=== PATIENT | female | born 1995 | race African-American/Black ===

== ENCOUNTER 2016-12-20 11:38 | Inpatient (IN) ==
[2016-12-20] MEDS ORDERED: ONDANSETRON 4 MG/2 ML VIAL IV PRN (12:41)
[2016-12-20 13:08] LABS: Basophils % 0.2 % (0.0-0.8); Eosinophils # 0.2 10*3/uL (0.0-0.87); Eosinophils % 1.5 % (0.00-10.9); Hematocrit 32.9 VOL% (35.7-47.0); Hemoglobin 10.8 GM/DL (12.0-16.0); Immature Granulocytes % 0.7 %; Immature Granulocytes Absolute 0.08 #; Lymphocytes # 1.9 10*3/uL (1.4-4.0); Lymphocytes % 17.3 % (21.3-54.2); Mean Corpuscular HGB Conc 32.8 GM/DL (32-36); Mean Corpuscular Hemoglobin 27 PG (27-34); Mean Corpuscular Volume 83.3 FL (87-102); Mean Platelet Volume 10.7 FL (9.6-12.0); Monocytes # 0.7 10*3/uL (0.11-0.8); Monocytes % 6.8 % (1.7-12.7); Neutrophils # 7.9 10*3/uL (1.4-7.4); Neutrophils % 73.5 % (38.7-73.9); Platelet Count 256 T/CUMM (130-400); Red Blood Count 3.95 MC/CUMM (3.8-5.5); Red Cell Distribution Width 12.6 % (9.3-17.3); White Blood Count 10.7 T/CUMM (4-12)
[2016-12-20] MEDS: LACTATED RINGERS 1,000 ML IV SCH ×2 (13:14→21:35)
[2016-12-20] MEDS: AMPICILLIN INJ 2,000 MG in SODIUM CHLORIDE 0.9% 100 ML IV SCH ×2 (13:15→19:45)
[2016-12-20 13:47] LABS: Alanine Aminotransferase 18 U/L (13-56); Albumin 3.1 G/DL (3.4-5.0); Alkaline Phosphatase 62 U/L (45-117); Aspartate Amino Transferase 10 U/L (0-37); Bilirubin,Total < 0.39 MG/DL (0.2-1.0); Blood Urea Nitrogen 8 MG/DL (7-18); Calcium 8.7 MG/DL (8.5-10.1); Glucose 83 MG/DL (74-106); Osmolality,Calculated 277.3 MOS/KG (273-304); Potassium 4.3 MMOL/L (3.5-5.1); Sodium 141 MMOL/L (136-145); Total Protein 6.5 G/DL (6.4-8.3)
[2016-12-20 13:58] LABS: Apearance,Urine CLEAR (Clear); Bilirubin,Urine Negative (Negative); Blood, Urine Negative (Negative); Glucose,Urine (UA) Negative (Negative); Ketones,Urine 5 mg/dL (Negative); Nitrite,Urine Negative (Negative); Protein,Urine Negative; RBC,Urine <1 /HPF (0-4); Urine Color Straw (Yellow); Urine Specific Gravity 1.006 (1.001-1.035); Urine Urobilinogen < 2.0 EU/DL (0.2-1.0); WBC,Urine <1 /HPF (0-6)
[2016-12-20] MEDS ORDERED: CITRIC ACID/SODIUM CITRATE 30 ML UDCUP PO ONE (14:37)
[2016-12-20] MEDS ORDERED: FAMOTIDINE 20 MG/2 ML VIAL IV ONE (14:37)
[2016-12-20] MEDS ORDERED: CITRIC ACID/SODIUM CITRATE 30 ML UDCUP ONE (14:38)
--- NOTE | 2016-12-20 14:53 | History and Physical Update ---
History and Physical Update - Dictation Physical: refer to scanned H&P - Physical Exam Mental Status: alert and oriented Heart: regular rate and rhythm Lung: clear to auscultation Abdomen: within normal limits Vitals: within normal limits History and Physical Changes: [id number] at 19 weeks gestation found to have incompetent cervix with hourglassing membranes on routine 2nd TM US today at Dr. Kim. Pt has had no symptoms of PTL including no UCs or cramping. Denies recent illness or fever. Adequate AFV. Good movement. Rh Positive. Abx started. Cultures collected. I have discussed with pt, her SO and her mother in great detail risk of placing emergency cervical cerclage including possibly not being able to place cerclage , possible ROM, possible infection such that cerclage would need to be removed, possible PTD prior to viability despite cerclage placement, among other scenarios. Pt and family are aware and seem to understand that viability is considered 24 wks gestation. Questions answered. Pt wishes to proceed with attempt at emergency cerclage placement.
[2016-12-20] MEDS ORDERED: LACTATED RINGERS 1,000 ML IV SCH (15:00)
[2016-12-20 17:21] LABS: Barbiturates Screen,Urine Negative (Negative); Benzodiazepines Screen,Urine Negative (Negative); Cannabinoid Screen,Urine Negative (Negative); Opiate Screen,Urine Negative (Negative); Phencyclidine Screen,Urine Negative (Negative)
[2016-12-20] MEDS ORDERED: MEPERIDINE 25 MG/1 ML VIAL ONE (17:46)
[2016-12-20] MEDS: MEPERIDINE 25 MG/1 ML VIAL IV PRN ×2 (18:14→22:52)
[2016-12-20] MEDS: ERYTHROMYCIN INJ 500 MG in SODIUM CHLORIDE 0.9% 100 ML IV SCH ×2 (19:29→21:30)
[2016-12-21] MEDS: AMPICILLIN INJ 2,000 MG in SODIUM CHLORIDE 0.9% 100 ML IV SCH ×4 (01:28→22:38)
[2016-12-21] MEDS: ERYTHROMYCIN INJ 500 MG in SODIUM CHLORIDE 0.9% 100 ML IV SCH ×4 (03:12→23:45)
[2016-12-21 07:07] LABS: Basophils % 0.1 % (0.0-0.8); Hematocrit 32.4 VOL% (35.7-47.0); Hemoglobin 10.2 GM/DL (12.0-16.0); Immature Granulocytes % 1.1 %; Immature Granulocytes Absolute 0.18 #; Lymphocytes # 1.2 10*3/uL (1.4-4.0); Mean Corpuscular HGB Conc 31.5 GM/DL (32-36); Mean Corpuscular Hemoglobin 27 PG (27-34); Mean Corpuscular Volume 86.6 FL (87-102); Mean Platelet Volume 10.6 FL (9.6-12.0); Monocytes # 0.6 10*3/uL (0.11-0.8); Monocytes % 3.8 % (1.7-12.7); Neutrophils # 14.9 10*3/uL (1.4-7.4); Platelet Count 260 T/CUMM (130-400); Red Blood Count 3.74 MC/CUMM (3.8-5.5); Red Cell Distribution Width 12.7 % (9.3-17.3); White Blood Count 16.9 T/CUMM (4-12)
--- NOTE | 2016-12-21 07:37 | Ultrasound Report ---
US OB limited Indication: . Cerclage. Check SHERRY. Limited obstetric ultrasound: Cervix is 15 mm long with one image suggesting funneling of the internal cervical os. SHERRY 84 mm. heart rate 163 BPM. Fetus is in a vertex position. Anterior placenta without previa. Impression: Thinning of the cervix as described. Possible funneling of the internal cervical os. Normal SHERRY. PROCEDURE INTERPRETED AT [facility] DEPARTMENT OF RADIOLOGY Final Report Signed by: Aditya Benson M.D.
[2016-12-21] MEDS ORDERED: PROMETHAZINE 25 MG/1 ML VIAL IM ONE (10:22)
--- NOTE | 2016-12-21 15:13 | Anesthesia ---
Anesthesia Post OP - Post Ansesthetic Evaluation Patient seen in post op: Yes Resp: within normal limits CV: within normal limits Mental: within normal limits Temp: within normal limits [id number]: within normal limits Nausea and Vomiting: within normal limits Pain: within normal limits
[2016-12-21] MEDS: LACTATED RINGERS 1,000 ML IV SCH (16:21)
[2016-12-22] MEDS: AMPICILLIN INJ 2,000 MG in SODIUM CHLORIDE 0.9% 100 ML IV SCH (05:21)
[2016-12-22] MEDS: LACTATED RINGERS 1,000 ML IV SCH (05:23)
[2016-12-22 05:28] LABS: Basophils % 0.1 % (0.0-0.8); Hematocrit 27.2 VOL% (35.7-47.0); Hemoglobin 8.9 GM/DL (12.0-16.0); Immature Granulocytes % 0.7 %; Lymphocytes # 1.5 10*3/uL (1.4-4.0); Lymphocytes % 10.3 % (21.3-54.2); Mean Corpuscular HGB Conc 32.7 GM/DL (32-36); Mean Corpuscular Hemoglobin 27 PG (27-34); Mean Corpuscular Volume 83.2 FL (87-102); Mean Platelet Volume 10.9 FL (9.6-12.0); Monocytes # 0.9 10*3/uL (0.11-0.8); Monocytes % 6.1 % (1.7-12.7); Neutrophils % 82.8 % (38.7-73.9); Platelet Count 238 T/CUMM (130-400); Red Blood Count 3.27 MC/CUMM (3.8-5.5); Red Cell Distribution Width 12.9 % (9.3-17.3); White Blood Count 14.5 T/CUMM (4-12)
[2016-12-22] MEDS: ERYTHROMYCIN INJ 500 MG in SODIUM CHLORIDE 0.9% 100 ML IV SCH ×2 (06:25)
--- NOTE | 2016-12-22 07:54 | Ultrasound Report ---
US OB limited Indication: Check amniotic fluid index and cervical length. History of cervical cerclage. Comparison: Limited OB ultrasound 12/21/2016. Technique: Using transabdominal probe, multiple grayscale, color Doppler, and M-mode Doppler images of the fetus were captured and stored. Findings: Fetus lies in vertex position. Cervix measures 1.9 cm. Endocervical canal appear shortened, but stable compared to previous study. Anterior placenta is present. Amniotic fluid appears adequate with amniotic fluid index of 8.81 cm. heart rate of 151 bpm is demonstrated. Impression: 1. Shortening of the endocervical canal is demonstrated stable in appearance to prior study. 2. Amniotic fluid index is within normal limits. 12/22/2016 7:49 AM PROCEDURE INTERPRETED AT [facility] DEPARTMENT OF RADIOLOGY Final Report Signed by: Dr. Gene Curry
--- NOTE | 2016-12-23 03:56 | OB/GYN Progress Note ---
Assessment and Plan (1) Cervical cerclage suture present in second trimester Status: Acute Current Visit: Yes FINANCE ASSISTANT - PN: Subj Interval history: 12/21/15 at 0830 Progress Note: Pt POD #1 from emergency cerclage placement at 19 wks feeling fine this morning on rounds. She had significant cramping after spinal effect was gone last evening which was very concerning, but this morning pt denies cramping. Her abdomen is nontender. I suspect now the cramping was due to 2 large stools the patient had last evening not long after surgery. She had had some significant nausea and emesis that has subsided for now. Plan to D/C her Molina later today if remains stable. WBC this morning 16,000 which is also concerning but pt is non-toxic in appearance and again abdomen is nontender. Plan to continue IV abx for 48 hours then D/C if no specific infection identified. Will continue close observation. Pt and her family are aware that if clinical signs of infection will need to remove cerclage and that the baby would not be expected to survive if delivered before 24 wks. Exam FINANCE ASSISTANT - Constitutional Vitals: Vital Signs Temp Pulse Resp BP Pulse Ox 12/23/16 02:00 18 12/22/16 23:30 97.7 F 91 H 18 92/51 97 12/22/16 22:00 18 12/22/16 20:42 92 H 20 12/22/16 20:00 97.8 F 92 H 20 101/62 97 12/22/16 15:44 98.4 F 106 H 20 112/58 98 12/22/16 11:39 98.1 F 106 H 18 105/58 98 12/22/16 07:22 98.4 F 108 H 18 116/71 99 12/22/16 04:00 98.8 F 101 H 20 108/50 99 General appearance: normal weight, no acute distress, other (good spirits this morning) - Head Head exam: Present: normal inspection, normocephalic - Eye Eye exam: Present: EOMI - Respiratory Respiratory exam: Present: clear to auscultation bilaterally - Cardiovascular Cardiovascular exam: Present: tachycardia - GI/Abdominal GI/Abdominal exam: Present: soft, other (nontender) - Extremities Exam Extremities exam: Present: normal inspection - Neurological Exam Neurological exam: Present: alert, oriented X3 - Psychiatric Psychiatric exam: Present: normal affect, normal mood - Skin Skin exam: Present: normal color, warm Results - Labs CBC & BMP: 12/22/16 04:46 12/20/16 13:01
--- NOTE | 2016-12-23 04:00 | OB/GYN Progress Note ---
Assessment and Plan (1) Cervical cerclage suture present in second trimester Status: Acute Assessment and plan: Continue care as discussed in notes. 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 No temps of 100.5 or greater. I'm suspicious the N/V and temps could be related to her antibiotic dosing. Plan D/C of IV abx later today. Plan D/C of Molina later today. Pt feeling well overall and again no TTP of abdomen. SHERRY essentially unchanged. Good heart tones. Exam SPRAYER AUTOMATIC SPRAY MACHINE - Constitutional Vitals: Vital Signs Temp Pulse Resp BP Pulse Ox 12/23/16 02:00 18 12/22/16 23:30 97.7 F 91 H 18 92/51 97 12/22/16 22:00 18 12/22/16 20:42 92 H 20 12/22/16 20:00 97.8 F 92 H 20 101/62 97 12/22/16 15:44 98.4 F 106 H 20 112/58 98 12/22/16 11:39 98.1 F 106 H 18 105/58 98 12/22/16 07:22 98.4 F 108 H 18 116/71 99 12/22/16 04:00 98.8 F 101 H 20 108/50 99 General appearance: normal weight, no acute distress - Head Head exam: Present: normal inspection, normocephalic - Eye Eye exam: Present: EOMI - Respiratory Respiratory exam: Present: clear to auscultation bilaterally - Cardiovascular Cardiovascular exam: Present: regular rate and rhythm - GI/Abdominal GI/Abdominal exam: Present: soft, other (nontender) - Extremities Exam Extremities exam: Present: normal inspection - Neurological Exam Neurological exam: Present: alert, oriented X3 - Psychiatric Psychiatric exam: Present: normal affect, normal mood - Skin Skin exam: Present: normal color, warm Results - Labs CBC & BMP: 12/22/16 04:46 12/20/16 13:01 Lab Results: I have reviewed the past 24 hour labs
--- NOTE | 2016-12-23 04:12 | OB/GYN Progress Note ---
Assessment and Plan (1) Cervical cerclage suture present in second trimester Status: Acute Assessment and plan: Continue care as discussed in notes. Current Visit: Yes WINDOW AND SIDING CRAFTSMAN - PN: Subj Interval history: 12/23/16 0400 Progress Note Pt doing well. No further fever since IV abx stopped yesterday. No further nausea or emesis since IV abx stopped. Vaginal culture noted with 2 varieties of E. coli cultured out. Will start Ampicillin orally for 7 days. Also will start vaginal progesterone for possible cervical support at this point. Will D/C home later today if remains stable with strict instructions on pelvic rest, close monitoring for signs of infection, light activity only. Will recheck in office on Monday. Exam WINDOW AND SIDING CRAFTSMAN - Constitutional Vitals: Vital Signs Temp Pulse Resp BP Pulse Ox 12/23/16 02:00 18 12/22/16 23:30 97.7 F 91 H 18 92/51 97 12/22/16 22:00 18 12/22/16 20:42 92 H 20 12/22/16 20:00 97.8 F 92 H 20 101/62 97 12/22/16 15:44 98.4 F 106 H 20 112/58 98 12/22/16 11:39 98.1 F 106 H 18 105/58 98 12/22/16 07:22 98.4 F 108 H 18 116/71 99 General appearance: normal weight, no acute distress - Head Head exam: Present: normal inspection, normocephalic - Eye Eye exam: Present: EOMI - Respiratory Respiratory exam: Present: clear to auscultation bilaterally - Cardiovascular Cardiovascular exam: Present: regular rate and rhythm - GI/Abdominal GI/Abdominal exam: Present: soft, other (nontender) - Extremities Exam Extremities exam: Present: normal inspection - Neurological Exam Neurological exam: Present: alert, oriented X3 - Psychiatric Psychiatric exam: Present: normal affect, normal mood - Skin Skin exam: Present: normal color, warm Results - Labs CBC & BMP: 12/22/16 04:46 12/20/16 13:01
--- NOTE | 2016-12-23 04:18 | Discharge Summary ---
Hospital Course - Hospital Course Hospital Course: Admitted directly from Dr. Braden's office where pt was found to have incompetent cervix with membranes through the cervical os on routine 20 week US screening. Discussed various mgt options with patient and her family and pt wished to have emergency cerclage. She was made aware of various BRCA. She underwent the procedure without complication. She had low grad temps afterward but non at 100.5 or higher. She had intermittent N/V. The temps and N/V resolved once her IV Ampicillin and Erythromycin were stopped. Her vaginal culture grew 2 varieties of E.coli that were both sensitive to Ampicillin. Her Molina was D/C'd on postop day2 and pt was voiding without difficulty. Pt to be dismissed as she remains stable. Diagnosis - Discharge Diagnosis (1) Cervical cerclage suture present in second trimester Status: Acute Discharge Plan - Discharge Data Disposition: Disch To Home/Self Care Condition at Discharge: Stable Discharge Diet: regular diet Activity: other (pelvic rest, light activity only) Hygiene: may shower Weight Bearing at Discharge: full weight bearing Driving: not until seen by doctor Contact your physician if you experience:: fever over 101, Difficulty voiding, Redness or swelling, Nausea/Vomiting, Shortness of breath, Bleeding, pain uncontrolled by pain medications - Discharge Medications New Ampicillin Cap 500 mg PO QID #28 capsule proGESTerone [Prometrium] 200 mg VAG BEDTIME #30 capsule - Follow Up or Referral Follow Up: Andie Soler DO [Primary Care Provider] - (Monday12/26/16 at 2 pm at office ) - Forms/Instructions Exam - Constitutional Vitals: Period Temp Pulse Resp BP Sys/Diaz Pulse Ox Last 24 Hr 97.7 F-98.4 F 91-108 18-20 92-116/51-71 97-99 General appearance: normal weight, no acute distress - Head Head exam: Present: normal inspection, normocephalic - Eye Eye exam: Present: EOMI - Respiratory Respiratory exam: Present: clear to auscultation bilaterally - Cardiovascular Cardiovascular exam: Present: regular rate and rhythm - GI/Abdominal GI/Abdominal exam: Present: soft, other (nontender) - Extremities Exam Extremities exam: Present: normal inspection - Neurological Exam Neurological exam: Present: alert, oriented X3 - Psychiatric Psychiatric exam: Present: normal affect, normal mood - Skin Skin exam: Present: normal color, warm Discharge Results Labs on day of discharge: Labs from last 24 hours 12/22/16 04:46 WBC 14.5 H RBC 3.27 L Hgb 8.9 L Hct 27.2 L MCV 83.2 L MCH 27 MCHC 32.7 RDW 12.9 Plt Count 238 MPV 10.9 Neut % (Auto) 82.8 H Lymph % (Auto) 10.3 L [place] % (Auto) 6.1 Eos % (Auto) 0.0 Baso % (Auto) 0.1 Neut # (Auto) 12.0 H Lymph # (Auto) 1.5 [place] # (Auto) 0.9 H Eos # (Auto) 0.0 Baso # (Auto) 0.0 Immature Gran % 0.7 Nucleated RBC % 0.0 Immature Gran # 0.10 Nucleated RBCs # 0.00 DS: Provider Date of admission: 12/20/16 12:41 Primary care physician: Andie Soler DO Attending physician on admission: Andie Soler DO Consults: 12/20/16 12:41 Consult to Anesthesiology [CONS] Routine Consulting Provider: Reason for Anesthesiology: Epidural Consult Comment: Epidural for pain managment Discharging clinician: Andie Soler DO Expected date of discharge: 12/23/16
[2016-12-23 07:25] VITALS: BP 103/48
[2016-12-23] MEDS ORDERED: AMPICILLIN 500 MG CAPSULE PO SCH (09:00)
== END 2016-12-23 11:05 | disposition home or self-care (01) | DRG 782 ==
LOC: N.LDOUT 11:38 → N.LD 11:40 → N.OB 12-21 10:51
PROVIDERS: ADMIT Obstetrics & Gynecology; ATTEND Obstetrics & Gynecology

== ENCOUNTER 2016-12-30 04:11 | Inpatient (IN) ==
[2016-12-30] MEDS ORDERED: ONDANSETRON 4 MG/2 ML VIAL IV PRN (04:37)
[2016-12-30] MEDS ORDERED: MEPERIDINE 50 MG/1 ML VIAL IV PRN (04:37)
[2016-12-30] MEDS ORDERED: LACTATED RINGERS 1,000 ML IV SCH (05:00)
[2016-12-30] MEDS ORDERED: OXYTOCIN/LR 20 UNIT/1,000 ML BAG IV ONE ×2 (05:03→05:37)
[2016-12-30 05:04] LABS: Basophils % 0.2 % (0.0-0.8); Hematocrit 32.4 VOL% (35.7-47.0); Hemoglobin 10.5 GM/DL (12.0-16.0); Immature Granulocytes % 1.1 %; Immature Granulocytes Absolute 0.25 #; Lymphocytes # 0.8 10*3/uL (1.4-4.0); Lymphocytes % 3.5 % (21.3-54.2); Mean Corpuscular HGB Conc 32.4 GM/DL (32-36); Mean Corpuscular Hemoglobin 27 PG (27-34); Mean Corpuscular Volume 84.4 FL (87-102); Mean Platelet Volume 10.6 FL (9.6-12.0); Monocytes # 0.7 10*3/uL (0.11-0.8); Monocytes % 3.2 % (1.7-12.7); Neutrophils # 20.9 10*3/uL (1.4-7.4); Platelet Count 218 T/CUMM (130-400); Red Blood Count 3.84 MC/CUMM (3.8-5.5); White Blood Count 22.7 T/CUMM (4-12)
[2016-12-30 05:28] LABS: Band Neutrophils 8 % (0-10); Lymphocytes 6 % (20-55); Metamyelocytes 3 %; Myelocytes 2 %; Segmented Neutrophils 79 % (50-85)
[2016-12-30 05:29] LABS: Burr Cells 1+; Platelet Estimate Normal
[2016-12-30 05:30] LABS: Total Cells Counted 100
[2016-12-30] MEDS ORDERED: IBUPROFEN 800 MG TABLET PO PRN (05:37)
[2016-12-30] MEDS ORDERED: ACETAMINOPHEN 325 MG TABLET PO PRN (05:37)
[2016-12-30] MEDS ORDERED: WITCH HAZEL PADS 100/JAR TOP PRN (05:37)
[2016-12-30] MEDS ORDERED: RHO(D) IMMUNE GLOBULIN 300 MCG SYRINGE IM ONE (05:37)
[2016-12-30] MEDS ORDERED: BENZOCAINE 20%/MENTHOL 0.5% SPRAY 56 GM CAN TOP PRN (05:37)
[2016-12-30] MEDS ORDERED: LANOLIN 50% CREAM 0.3 OZ TUBE TOP PRN (05:37)
[2016-12-30] MEDS ORDERED: MEASLES/MUMPS/RUBELLA VACCINE 0.5 ML VIAL SUBCUT ONE (05:37)
[2016-12-30] MEDS ORDERED: HYDROCORTISONE 2.5% RECTAL CREAM 30 GM TUBE TOP PRN (05:37)
[2016-12-30] MEDS ORDERED: BISACODYL 10 MG SUPP RECTAL PRN (05:37)
[2016-12-30] MEDS ORDERED: DIPH/TET/ACEL PERT BOOSTER VACCINE 0.5 ML VIAL IM ONE (05:37)
[2016-12-30] MEDS ORDERED: oxyCODONE/ACETAMINOPHEN 5-325 MG TABLET PO PRN ×2 (05:37)
--- NOTE | 2016-12-30 05:58 | Operative Note ---
Date of procedure: 12/30/16 Pre-op diagnosis: at 20 weeks with demise Post-op diagnosis: same (cervical incompetence with cerclage, severe oligohydramnios, tight nuchal cord) Procedure: Spontaneous vaginal delivery Patient presented to the hospital with active contractions and advancing progress of the demise through the canal. Fetus was allowed to deliver to its head and delivered with maternal expulsive effort. The fetus placenta and intact bag of samay[place] were all delivered together with no evidence of life or amniotic fluid. The maternal surface of the placenta appeared ragged and odor and is being cultured. Patient is recovering well. Anesthesia: none Surgeon / Physician: Alexey Talbot Estimated blood loss: minimal Specimens: other (fetus membranes and placenta) Condition: stable Disposition: floor Results - Labs CBC & BMP: 12/30/16 04:59 Discharge Plan - Discharge Medications No Action RX: proGESTerone [Prometrium] 200 mg VAG BEDTIME #30 capsule - Follow Up or Referral - Forms/Instructions
[2016-12-30] MEDS: CIPROFLOXACIN 500 MG TABLET PO SCH ×2 (10:40→20:25)
[2016-12-30] MEDS: metroNIDAZOLE 500 MG TABLET PO SCH ×2 (10:40→20:25)
--- NOTE | 2016-12-30 19:43 | OB/GYN Progress Note ---
Assessment and Plan (1) demise before 22 weeks with retention of fetus Problem details: Cerclage stitches have been left in place for removal later in the office. Antibiotics will be continued until tomorrow and possible discharge done tomorrow Status: Acute Current Visit: Yes MANAGER CARGO - PN: Subj Interval history: Patient has recovered well with minimal abdominal discomfort and no significant bleeding. No vaginal odor or abdominal tenderness Exam MANAGER CARGO - Constitutional Vitals: Vital Signs Temp Pulse Resp BP Pulse Ox 12/30/16 15:33 97.9 F 105 H 18 90/67 98 12/30/16 11:35 98 F 111 H 18 82/54 99 12/30/16 08:14 97.1 F L 114 H 20 85/49 96 12/30/16 08:00 97.2 F L 117 H 20 82/44 96 12/30/16 04:35 97.1 F L 137 H 24 100/77 100 General appearance: no acute distress - Head Head exam: Present: normal inspection - ENT ENT exam: Present: normal exam - Respiratory Respiratory exam: Present: clear to auscultation bilaterally. Absent: accessory muscle use - GI/Abdominal GI/Abdominal exam: Present: normal bowel sounds, soft. Absent: distended, rebound - Extremities Exam Extremities exam: Present: normal inspection - Back Exam Back exam: Present: normal inspection - Neurological Exam Neurological exam: Present: alert, oriented X3 - Psychiatric Psychiatric exam: Present: normal affect, normal mood - Skin Skin exam: Present: normal color, warm, dry Results - Labs CBC & BMP: 12/30/16 04:59
[2016-12-30] MEDS: DOCUSATE SODIUM 100 MG CAPSULE PO SCH (20:24)
[2016-12-31 04:54] LABS: Basophils # 0.1 10*3/uL (0.0-0.2); Basophils % 0.2 % (0.0-0.8); Hematocrit 30.8 VOL% (35.7-47.0); Immature Granulocytes % 12.8 %; Immature Granulocytes Absolute 5.72 #; Lymphocytes # 1.5 10*3/uL (1.4-4.0); Lymphocytes % 3.4 % (21.3-54.2); Mean Corpuscular HGB Conc 32.5 GM/DL (32-36); Mean Corpuscular Hemoglobin 28 PG (27-34); Mean Corpuscular Volume 84.6 FL (87-102); Mean Platelet Volume 10.8 FL (9.6-12.0); Monocytes # 2.6 10*3/uL (0.11-0.8); Monocytes % 5.8 % (1.7-12.7); Neutrophils # 34.7 10*3/uL (1.4-7.4); Neutrophils % 77.8 % (38.7-73.9); Platelet Count 170 T/CUMM (130-400); Red Blood Count 3.64 MC/CUMM (3.8-5.5); Red Cell Distribution Width 13.2 % (9.3-17.3)
[2016-12-31 04:58] LABS: White Blood Count 44.6 T/CUMM (4-12)
[2016-12-31 05:27] LABS: Band Neutrophils 18 % (0-10); Hypochromasia 1+; Lymphocytes 2 % (20-55); Metamyelocytes 1 %; Microcytosis Slight; Platelet Estimate Adequate; Segmented Neutrophils 73 % (50-85); Total Cells Counted 100
[2016-12-31] MEDS: CIPROFLOXACIN 500 MG TABLET PO SCH (09:15)
[2016-12-31] MEDS: DOCUSATE SODIUM 100 MG CAPSULE PO SCH (09:15)
[2016-12-31] MEDS: metroNIDAZOLE 500 MG TABLET PO SCH (09:16)
[2016-12-31 10:12] VITALS: BP 85/53
--- NOTE | 2016-12-31 12:06 | Discharge Summary ---
Hospital Course - Hospital Course Hospital Course: This patient was admitted at 20-1/2 weeks gestation with a demise. She had been threatening labor and had a cerclage placed. She presented to the hospital with the fetus in the vagina. She expel spontaneously as a complete unit, with the fetus intact membranes and placenta all delivered together. Was a detectable odor. The placenta was cultured and the patient started on metronidazole and ciprofloxacin intravenously. A significantly elevated white count of 40,000 at decreased by half by the following day and she was discharged with the same medicine orally. She or has an appointment with Dr. carver and will be keeping that on Monday. Diagnosis - Discharge Diagnosis (1) demise before 22 weeks with retention of fetus Status: Acute Specialty Discharge - Follow Up or Referrals Discharge Plan - Discharge Data Disposition: Disch To Home/Self Care Condition at Discharge: Stable Discharge Diet: advance to your usual diet Activity: resume usual activities as tolerated Weight Bearing at Discharge: full weight bearing Driving: not until seen by doctor Contact your physician if you experience:: fever over 101, Difficulty voiding, Redness or swelling, Nausea/Vomiting, Shortness of breath, Bleeding, pain uncontrolled by pain medications (Follow up with Dr. Soler as schedled.) - Discharge Medications New HYDROcodone/ACETAMIN 5-325 [[place] 5-325] 1 - 2 tablet PO Q6H PRN #30 tablet PRN Reason: Pain Severe (8-10) Ciprofloxacin Tab [Cipro Tab] 500 mg PO BID #10 tablet metroNIDAZOLE [Metronidazole Cap/Tab] 500 mg PO BID #10 tablet No Action proGESTerone [Prometrium] 200 mg VAG BEDTIME #30 capsule - Follow Up or Referral - Forms/Instructions Instructions: Perineal Care (DC), Stillbirth (DC), Bleeding (DC) Exam - Constitutional Vitals: Period Temp Pulse Resp BP Sys/Diaz Pulse Ox Last 24 Hr 97.1 F-97.9 F 103-108 18-20 85-90/53-67 98 General appearance: no acute distress - Respiratory Respiratory exam: Present: clear to auscultation bilaterally - Cardiovascular Cardiovascular exam: Present: regular rate and rhythm - GI/Abdominal GI/Abdominal exam: Present: normal bowel sounds. Absent: guarding, tenderness - Extremities Exam Extremities exam: Present: normal inspection - Back Exam Back exam: Present: normal inspection - Neurological Exam Neurological exam: Present: alert, oriented X3 - Psychiatric Psychiatric exam: Present: normal affect, normal mood Discharge Results Labs on day of discharge: Labs from last 24 hours 12/31/16 04:42 WBC 44.6 H* D RBC 3.64 L Hgb 10.0 L Hct 30.8 L MCV 84.6 L MCH 28 MCHC 32.5 RDW 13.2 Plt Count 170 D MPV 10.8 Neut % (Auto) 77.8 H Lymph % (Auto) 3.4 L [place] % (Auto) 5.8 Eos % (Auto) 0.0 Baso % (Auto) 0.2 Neut # (Auto) 34.7 H Lymph # (Auto) 1.5 [place] # (Auto) 2.6 H Eos # (Auto) 0.0 Baso # (Auto) 0.1 Total Counted 100 Immature Gran % 12.8 Nucleated RBC % 0.0 Immature Gran # 5.72 Segmented Neutrophils 73 Band Neutrophils 18 H Lymphocytes 2 L Monocytes 6 Metamyelocytes 1 Nucleated RBCs # 0.00 Platelet Estimate Adequate Hypochromasia 1+ Microcytosis Slight Morphology Comment DS: Provider Date of admission: 12/30/16 04:37 Primary care physician: Andie Soler DO Attending physician on admission: Alexey Talbot DO Consults: 12/30/16 05:37 Consult to Stripper [place] [CONS] Routine Consult Stripper [place]: Breast Feeding Discharging clinician: Aelxey Talbot DO Expected date of discharge: 12/31/16
--- NOTE | 2017-01-02 11:17 | Pathology Report from [facility] ---
ACCESSION # : [id number] PATIENT NAME : Toya Anderson ORDERING DR : KAYLYN REEDER DO CLINICAL HX: IUP 20 weeks active labor POST-OP DX: Same SPECIMEN INFO: Baby and placenta GROSS DESCRIPTION: The specimen is received in formalin labeled with the patient 's name Toya Anderson and "PRODUCTS OF CONCEPTION" consists of a placenta with an accompanying intact ammoniac sac. Breaking the sac reveals meconium stained fluid along with a 310 female fetus which has a crown to rump measurement of 15.0 cm and crown to heel of 23.5 cm. The skin of the fetus is patricia red with anomalies grossly appreciated. The attached umbilical cord measures 30.0 cm, contains three vessels and is centrally inserted. A portion of the cord is wrapped around the neck of the fetus. The membranes are green knox and translucent. The accompany placenta weighs 422 grams and measures 14.0 x 9.5 x 1.5 cm. The surface is blue philip and intact with a 1.5 cm infarcted area noted. The maternal surface is intact with no other abnormalities appreciated upon sectioning. Sections submitted A- membranes and cord, B- and maternal surfaces. DIAGNOSIS FOR TOYA ANDERSON: BABY AND PLACENTA: Non-viable female fetus,. Trivascular umbilical cord. membranes with chorioamnionitis. Immature placenta with increased syncytial clumping, dystrophic calcification, and acute chorioamnionitis. SERVICE DATE: 12/30/2016 REPORT DATE: 01/02/2017 PATHOLOGIST: Rahel Connell III, M.D. MTDD
== END 2016-12-31 13:45 | disposition home or self-care (01) | DRG 775 ==
LOC: N.LDOUT 04:11 → N.LD 04:16 → N.OB 10:58
PROVIDERS: ADMIT Obstetrics & Gynecology; ATTEND Obstetrics & Gynecology